=== PATIENT | female | born 1990 | race Caucasian/White ===

== ENCOUNTER → 2016-12-12 | Outpatient (CLI) | payer OTHER ==
--- NOTE | 2016-12-12 19:37 | HKNOTE ---
DATE OF SERVICE: 12/12/2016 SUBJECTIVE: The patient continues to complain of pain in her right knee. She has been calling for refills on the [facility] prescriptions. She has a great deal of pain in her knee. 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 Her history again was reviewed. 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 She complains that the knee pain continues and occasionally the knee feels unstable. PHYSICAL EXAMINATION: The knee today, 1+ effusion, possibly some tenderness over the medial joint l ine, marked lateral subluxation of the knee. MANAGEMENT: The patient is being sent for an MRI scan of the right knee. 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 She will be called with the results of the MRI scan as soon as it is a vailable. Dictated By: RICH DONIS/LUIS Conf#: [id number] DID#: [id number]
== END | disposition home or self-care (01) ==
LOC: HKI 14:46
DX: M25.561 Pain in right knee (principal)
CPT/HCPCS: G0463

== ENCOUNTER → 2017-01-01 | Outpatient (CLI) | payer OTHER ==
--- NOTE | 2017-01-01 18:24 | HKNOTE ---
DATE OF SERVICE: 01/01/2017 The patient continues to complain of much pain in her right knee. She has obtained a new "splint" f or that knee (neoprene sleeve). Pain keeps her awake at night. On this past Friday at [place], th e knee completely gave way on her, and she fell onto the floor. Since then, the knee has become swo llen. The knee also locks on getting up from bed in the morning. PHYSICAL EXAMINATION: The splint was removed. 2+ effusion is present. Marked tenderness over the medial joint line. IMAGING: The plain x-rays of her right knee previously obtained at [facility] were reviewed. These show that the patella tracks laterally. FOOTNOTE: The patient states that she has had trouble with her knee since she was a child. An MRI scan of the right knee obtained on 12/20/____ was reviewed. This was reported by Dr. Florence underwood as showing "Minimal chondromalacia along the lateral compartment of the knee. The menisci, cruci ate and collateral ligaments are intact. Trace joint effusion." MANAGEMENT: The patient is advised that she may now have a torn meniscus that was not picked up by the MRI. The MRI was obtained before the recent fall to the ground. In addition, the MRI has about a 5% chance of missing pathology. Her original x-rays taken at [facility] were reviewed, and these show that th e patella tracks laterally. MANAGEMENT: 1. The patient is being referred to Dr. Eduard Wheeler for a sports physician second opinion and adonay eover of treatment as needed. 2. At her request, she was given a prescription for Percocet. The patient will be seen only for other problems not related to her knee. Note that no further pres criptions of Percocet will be prescribed either. Dictated By: RICH DONIS/LUIS Conf#: [id number] DID#: [id number]
== END | disposition home or self-care (01) ==
LOC: HKI 14:21
DX: M25.561 Pain in right knee (principal); M25.461 Effusion, right knee; M94.261 Chondromalacia, right knee; Z91.81 History of falling

== ENCOUNTER → 2017-09-25 | Outpatient (CLI) | END | disposition home or self-care (01) ==